=== PATIENT | male | born 1975 | race Hispanic/Latino ===

== ENCOUNTER 2023-07-08 15:15 | Emergency (ER) | payer BC ==
[~2023-07-08] VITALS: Ht 172.7 cm; Wt 86.2 kg
[2023-07-08 17:06] VITALS: BP 106/63; PULSE 86; RESP 18; O2SAT 98
[2023-07-08] MEDS ORDERED: LACT20PA6 PO (18:05)
[2023-07-08] MEDS ORDERED: DOCU-133 PO (18:05)
[2023-07-08] MEDS ORDERED: HYDR30CR79 RC (18:10)
== END 2023-07-08 18:28 | disposition home or self-care (01) ==
LOC: EDH 15:15
DX: K59.00 Constipation, unspecified (principal); K64.9 Unspecified hemorrhoids; E11.9 Type 2 diabetes mellitus without complications; Z88.0 Allergy status to penicillin
CPT/HCPCS: 74018